=== PATIENT | female | born 1965 | race Caucasian/White ===

== ENCOUNTER 2016-07-10 12:50 | Emergency (ER) | payer MEDICAID, OTHER ==
[~2016-07-10] VITALS: Ht 162.6 cm; Wt 79.5 kg
[2016-07-10 12:56] VITALS: Ht 162.6 cm; Wt 79.5 kg
[2016-07-10] MEDS ORDERED: KETOROLAC 60 MG INJ IM STA (14:49)
[2016-07-10] MEDS ORDERED: ACETAMINOPHEN 500 MG TAB PO STA (14:49)
[2016-07-10] MEDS ORDERED: AZIT250T94 PO (15:25)
--- NOTE | 2016-07-10 15:44 | ERD ---
ER Documentation Chief Complaint Date/Time DATE: 07/10/16 TIME: 15:41 Chief Complaint CAME IN VIA INTAKE DUE TO FEVER AND FLU LIKE SYMPTOMS HPI Patient is a 42-year-old female who states she has had fever, chills, body aches that began yesterday. She took Aleve earlier this morning but no other medications. Denies cough. Denies abdominal pain. Denies nausea or vomiting or diarrhea. Denies sore throat. She states she has had this before and was given medications by her doctor and had complete resolution of her symptoms. ROS All systems reviewed and are negative except as per history of present illness. Medications Home Meds Active Scripts Azithromycin* (Zithromax*) 250 Mg Tablet, 250 MG PO .ZPACK DIRECTED, #6 TAB TAKE 500 MG (2 TABS) THE FIRST DAY THEN 250 MG (1 TAB) DAYS 2-5 Prov:SALLY SPENCE PA-C 07/10/16 PMhx/Soc History of Surgery: Yes ( X 1) Anesthesia Reaction: No Hx Neurological Disorder: No Hx Respiratory Disorders: No Hx Cardiac Disorders: Yes (HTN) Hx Psychiatric Problems: No Hx Miscellaneous Medical Probl: No Hx Alcohol Use: No Hx Substance Use: No Hx Tobacco Use: No Smoking Status: Never smoker FmHx Family History: No diabetes Physical Exam Vitals Vital Signs Date Time Temp Pulse Resp B/P Pulse Ox O2 Delivery O2 Flow Rate FiO2 07/10/16 12:56 103.2 89 18 141/71 97 Physical Exam General: well developed, well nourished, alert, nontoxic, no distress Head: normocephalic, atraumatic Neck: Supple, nontender, no lymphadenopathy, no midline tenderness Ears: no tenderness over mastoids bilaterally, TMs nonerythematous, no exudates in canal Oropharynx: no tonsilar erythema or edema, uvula midline, no exudates, no kissing tonsils, no drooling Respiratory: Clear to auscaultation bilaterally, speaks in full sentences, no use of accesory muscles or labored breathing, no rales, ronchi, or wheezing Cardiovascular: RRR, No murmurs GI: soft, non tender, non distended, negative murphys sign, negative mcburneys point tenderness, no cva tenderness bilaterally, no rebound or guarding Back: no midline tenderness, no step offs or bony abnormalities, sensation to light touch in tact Extremities: moving all extremities normally, normal gait, no edema Results 24 hrs Current Medications Medications (Trade) Dose Ordered Sig/Jr Route PRN Reason Start Time Stop Time Status Last Admin Dose Admin Ketorolac Tromethamine (Toradol) 60 mg ONCE STAT IM 07/10/16 14:49 07/10/16 14:50 DC 07/10/16 15:04 Acetaminophen (Tylenol Tab) 1,000 mg ONCE STAT PO 07/10/16 14:49 07/10/16 14:50 DC 07/10/16 15:05 Procedures/MDM Patient presents with fever 103.2. She is not tachycardic. She has chills and body aches but no other real symptoms. Her symptoms began yesterday. Both myself and Dr. Steele evaluated the patient and we discussed with the patient and her symptoms and she decided that she wanted to decline getting blood work at this time. She was given Toradol and Tylenol here in the emergency room. She was discharged with azithromycin. All of the physical exam findings were discussed with Dr. Steele who also saw the patient. Recommended this patient follow up with her primary care doctor within 48 hours or return to the emergency room for any worsening of symptoms. However this time I do believe there is suitable for outpatient management. I answered all their questions and they agreed with the plan and were discharged home. Departure Diagnosis: Primary Impression: Influenza-like symptoms Condition: Stable Patient Instructions: Influenza (Adult) Additional Instructions: Call your primary care doctor TOMORROW for an appointment during the next 1-2 days.See the doctor sooner or return here if your condition worsens before your appointment time. SALLY SPENCE PA-C Jul 10, 2016 15:44
[2016-07-10 16:01] VITALS: TEMP 101.8
== END 2016-07-10 16:01 | disposition home or self-care (01) ==
LOC: FTE 12:50
DX: R50.9 Fever, unspecified (principal); I10 Essential (primary) hypertension
CPT/HCPCS: 96372; J1885; Z7502; Z7610

== ENCOUNTER 2016-07-16 11:18 | Emergency (ER) | payer MEDICAID ==
[~2016-07-16] VITALS: Ht 167.6 cm; Wt 69.0 kg
[~2016-07-16 11:18] MED LIST: AZIT250T94 PO
[2016-07-16 11:24] VITALS: Ht 167.6 cm; Wt 69.0 kg
--- NOTE | 2016-07-16 13:51 | ERD ---
ER Documentation Chief Complaint Date/Time DATE: 07/16/16 TIME: 13:44 Chief Complaint fever x 1 week (TERRENCE LEES NP) HPI 50-year-old female complaining of fever 1 week. Patient stated that she was seen here on 07/10/2016 for fever and body ache. She was told that she has influenza. She was given Z-Tan, but only able to take it for 3 days. She states that she felt anxious, cannot sleep on the medication. She stopped taking it. Patient reports continued subjective fever, but denies chills. She took Aleve for fever and pain, last dose was 3 hours ago. She reports a decreased appetite and night sweats this morning. Patient also has epigastric pain, and painful blisters around her lips and inside her mouth for last 4 days. Denies cough or shortness of breath. Denies vomiting or diarrhea. Patient is concerned for deterioration illness, states that she initially did not want blood tests on her last visit. But now she wants to get tested. Patient has history of hypertension, was prescribed quinapril and bisoprolol/ hydrochlorothiazide by clinic. She is unable to return to the clinic because of her insurance status. She would like to get refills. (TERRENCE LEES NP) ROS All systems reviewed and are negative except as per history of present illness. (TERRENCE LEES NP) Medications Home Meds Active Scripts Bisoprolol-Hydrochlorothiazide (Ziac) 07/19.25 Tablet, 1 TAB PO DAILY, #10 TAB Prov:TERRENCE LEES NP 07/16/16 Quinapril Hcl (Quinapril Hcl) 40 Mg Tablet, 40 MG PO DAILY, #10 TAB Prov:TERRENCE LEES NP 07/16/16 Acyclovir* (Zovirax*) 800 Mg Tablet, 800 MG PO 5 TIMES DAILY for 7 Days, TAB Prov:TERRENCE LEES NP 07/16/16 Azithromycin* (Zithromax*) 250 Mg Tablet, 250 MG PO .ZPACK DIRECTED, #6 TAB TAKE 500 MG (2 TABS) THE FIRST DAY THEN 250 MG (1 TAB) DAYS 2-5 Prov:SALLY SPENCE PA-C 07/10/16 Allergies Allergies: Coded Allergies: No Known Allergy (Unverified , 07/16/16) PMhx/Soc History of Surgery: Yes ( X 1) Anesthesia Reaction: No Hx Neurological Disorder: No Hx Respiratory Disorders: No Hx Cardiac Disorders: Yes (HTN) Hx Psychiatric Problems: No Hx Miscellaneous Medical Probl: No Hx Alcohol Use: No Hx Substance Use: No Hx Tobacco Use: No (TERRENCE LEES NP) Physical Exam Vitals Vital Signs Date Time Temp Pulse Resp B/P Pulse Ox O2 Delivery O2 Flow Rate FiO2 07/16/16 11:24 98.6 69 18 125/68 98 (PATRICK BUSTOS) Physical Exam General: Well-developed, well-nourished, conscious and coherent, in no distress Skin: Warm and dry without rash, good texture and turgor Head: Normocephalic without evidence of trauma Eyes: Sclera and conjunctivae normal; pupils equal, round, and reactive to light; extraocular movements are intact Ears: Canals are patent. Tympanic membranes are clear Nose/Face: Without rhinorrhea Mouth/Throat: Mucous membranes are moist. Posterior pharynx clear without erythema or exudates. Vesicular lesions noted on the upper and lower lips. Neck: Supple without meningismus or adenopathy. Carotids are equal. Trachea midline. No bruits or JVD Chest: Normal AP diameter, good expansion without retractions. Nontender. Lungs are clear to auscultate bilaterally with good tidal volume Heart: Regular rate and rhythm. No murmur, rub, or gallop heard Abdomen: Soft and nontender without masses, guarding, or rebound. Bowel sounds are active. No hepatosplenomegaly Back: Without spinal or CVA tenderness Extremities: Full range of motion. Good strength bilaterally. No clubbing, cyanosis, or edema. Peripheral pulses are intact. Sensation intact Neuro: Alert and oriented. Mental status normal, speech clear. Cranial nerves grossly intact (TERRENCE LEES NP) Result Diagram: 07/16/16 1415 07/16/16 1415 Results 24 hrs Laboratory Tests Test 07/16/16 14:15 White Blood Count 7.410^3/ul Red Blood Count 4.3010^6/ul Hemoglobin 13.4g/dl Hematocrit 40.2% Mean Corpuscular Volume 93.5fl Mean Corpuscular Hemoglobin 31.2pg Mean Corpuscular Hemoglobin Concent 33.3g/dl Red Cell Distribution Width 12.8% Platelet Count 92447^3/UL Mean Platelet Volume 9.5fl Neutrophils % 59.5% Lymphocytes % 26.5% Monocytes % 6.9% Eosinophils % 2.8% Basophils % 0.3% Nucleated Red Blood Cells % 0.0/100WBC Neutrophils # 4.410^3/ul Lymphocytes # 2.010^3/ul Monocytes # 0.510^3/ul Eosinophils # 0.210^3/ul Basophils # 0.010^3/ul Nucleated Red Blood Cells # 0.010^3/ul Sodium Level 140mmol/L Potassium Level 3.9mmol/L Chloride Level 101mmol/L Carbon Dioxide Level 27mmol/L Anion Gap 16 Blood Urea Nitrogen 12mg/dl Creatinine 0.74mg/dl Glucose Level 88mg/dl Calcium Level 9.2mg/dl Total Bilirubin 0.3mg/dl Direct Bilirubin 0.00mg/dl Indirect Bilirubin 0.3mg/dl Aspartate Amino Transf (AST/SGOT) 29IU/L Alanine Aminotransferase (ALT/SGPT) 41IU/L Alkaline Phosphatase 97IU/L Total Protein 7.7g/dl Albumin 4.0g/dl Globulin 3.70g/dl Albumin/Globulin Ratio 1.08 Monoscreen Negative I reviewed Monospot test results- negative for mononucleosis. (PATRICK BUSTOS) Results 24 hrs Laboratory Tests Test 07/16/16 14:15 White Blood Count 7.410^3/ul Red Blood Count 4.3010^6/ul Hemoglobin 13.4g/dl Hematocrit 40.2% Mean Corpuscular Volume 93.5fl Mean Corpuscular Hemoglobin 31.2pg Mean Corpuscular Hemoglobin Concent 33.3g/dl Red Cell Distribution Width 12.8% Platelet Count 30112^3/UL Mean Platelet Volume 9.5fl Neutrophils % 59.5% Lymphocytes % 26.5% Monocytes % 6.9% Eosinophils % 2.8% Basophils % 0.3% Nucleated Red Blood Cells % 0.0/100WBC Neutrophils # 4.410^3/ul Lymphocytes # 2.010^3/ul Monocytes # 0.510^3/ul Eosinophils # 0.210^3/ul Basophils # 0.010^3/ul Nucleated Red Blood Cells # 0.010^3/ul Sodium Level 140mmol/L Potassium Level 3.9mmol/L Chloride Level 101mmol/L Carbon Dioxide Level 27mmol/L Anion Gap 16 Blood Urea Nitrogen 12mg/dl Creatinine 0.74mg/dl Glucose Level 88mg/dl Calcium Level 9.2mg/dl Total Bilirubin 0.3mg/dl Direct Bilirubin 0.00mg/dl Indirect Bilirubin 0.3mg/dl Aspartate Amino Transf (AST/SGOT) 29IU/L Alanine Aminotransferase (ALT/SGPT) 41IU/L Alkaline Phosphatase 97IU/L Total Protein 7.7g/dl Albumin 4.0g/dl Globulin 3.70g/dl Albumin/Globulin Ratio 1.08 (TERRENCE LEES NP) Procedures/MDM Well-appearing 50-year-old female presented ED with fever 1 week. She is currently afebrile. Her exams are essentially negative, except for vesicular lesions on her lips. Patient stated that she had lesions on her lips in the past, but never as extensive as this. CBC, CMP, Monospot, and influenza A and B swab was obtained. CBC and CMP are unremarkable. Influenza A and B are negative. Monospot pending at this time. Patient will be given prescription of acyclovir for herpes simplex outbreak. Her blood pressure medication will also be refilled for 10 days. Patient advised to follow-up with PCP for further BP meds refills. Community clinic referral provided for the patient. Patient is signed out to [facility] pending Monospot results. Patient appears well, stable for discharge and outpatient management. Medical decision making shared with patient and family. Education provided to patient and family. Patient and family expressed understanding of the plan. Medications on discharge: Acyclovir, quinapril, bisoprolol/HCTZ. Follow-up: Primary care provider in 2-3 days or return to ED if worse. (TERRENCE LEES NP) Departure Diagnosis: Primary Impression: Herpes simplex Additional Impression: HTN (hypertension) Hypertension type: essential hypertension Qualified Code: I10 - Essential hypertension Condition: Good TERRENCE LEES NP July 16, 2016 13:51 PATRICK BUSTOS July 16, 2016 16:51
[2016-07-16 14:25] LABS: ADD SCAN DIFF NO
[2016-07-16 14:29] LABS: BASOPHILS % 0.3 % (0.0-2.0); EOSINOPHILS # 0.2 10^3/ul (0.0-0.5); EOSINOPHILS % 2.8 % (0.0-7.0); HEMATOCRIT 40.2 % (37.0-47.0); HEMOGLOBIN 13.4 g/dl (12.0-16.0); LYMPHOCYTES % 26.5 % (15.0-51.0); MEAN CORPUSCULAR HEMOGLOBIN 31.2 pg (29.0-33.0); MEAN CORPUSCULAR HGB CONC 33.3 g/dl (32.0-37.0); MEAN CORPUSCULAR VOLUME 93.5 fl (82.0-101.0); MEAN PLATELET VOLUME 9.5 fl (7.4-10.4); MONOCYTE # 0.5 10^3/ul (0.3-0.9); MONOCYTES % 6.9 % (0.0-11.0); NEUTROPHIL # 4.4 10^3/ul (1.6-7.5); NEUTROPHILS % 59.5 % (39.0-77.0); PLATELET COUNT 294 10^3/UL (140-415); RED CELL DISTRIBUTION WIDTH 12.8 % (11.5-14.5); WHITE BLOOD COUNT 7.4 10^3/ul (4.8-10.8)
[2016-07-16 14:42] LABS: POTASSIUM 3.9 mmol/L (3.5-5.1)
[2016-07-16 14:44] LABS: BILIRUBIN,INDIRECT 0.3 mg/dl (0-1.1); BILIRUBIN,TOTAL 0.3 mg/dl (0.2-1.3); CREATININE 0.74 mg/dl (0.44-1.00)
[2016-07-16 14:45] LABS: TOTAL PROTEIN 7.7 g/dl (6.1-8.1)
[2016-07-16 14:46] LABS: CALCIUM 9.2 mg/dl (8.4-10.2)
[2016-07-16 14:49] LABS: ALBUMIN/GLOBULIN RATIO 1.08
[2016-07-16] MEDS ORDERED: QUIN40TA22 PO (16:13)
[2016-07-16] MEDS ORDERED: ZIAC5 PO (16:13)
[2016-07-16] MEDS ORDERED: ACYC800T57 PO (16:13)
== END 2016-07-16 17:05 | disposition home or self-care (01) ==
LOC: FTE 11:18
DX: B00.9 Herpesviral infection, unspecified (principal); I10 Essential (primary) hypertension
CPT/HCPCS: 80053; 85025; 86308; 87400; Z7502; 99284